=== PATIENT | male | born 1950 | race Caucasian/White ===

== ENCOUNTER 2020-07-13 06:30 | Emergency (ER) | payer OTHER ==
[2020-07-13] MEDS ORDERED: Ondansetron ODT 4 MG TAB ONE (07:10)
== END 2020-07-13 07:52 ==
LOC: NAV ERS 06:30
DX: K52.9 Noninfective gastroenteritis and colitis, unspecified (principal); K21.9 Gastro-esophageal reflux disease without esophagitis; M19.90 Unspecified osteoarthritis, unspecified site; Z85.038 Personal history of other malignant neoplasm of large intestine; Z87.01 Personal history of pneumonia (recurrent)
CPT/HCPCS: 99283; Q0162